=== PATIENT | male | born 1945 | race Caucasian/White ===

== ENCOUNTER 2018-11-18 00:54 | Inpatient (IN) | payer MEDICARE ==
[~2018-11-18] VITALS: Ht 182.9 cm; Wt 68.9 kg
[~2018-11-18 00:54] MED LIST: ACETAMINOPHEN325 M1 PO; ASPIR 8181 MG PO; AUGMENTIN 875875 MG PO; CELEXA 20 MG TA20 M1; EXELON4.5 MG PO; FLOMAX0.4 MG PO; GABAPENTIN 100100 MG PO; GEMFIBROZIL 60600 MG PO; HYDROCHLOROTH12.5 MG; LASIX 20 MG TAB20 MG PO; LISINOPRIL10 MG; METFORMIN HCL500 MG PO; MOM; NAMENDA 10 MG T10 MG PO; NEURONTIN 400400 M1 PO; ONDANSETRON HCL4 M2 PO; SEROQUEL 100 M100 M1 PO; SEROQUEL 25 MG25 MG PO; SEROQUEL 50 MG50 MG PO; XANAX 0.25 MG0.25 MG PO; ZOCOR 20 MG TAB20 M1 PO; ZYPREXA 10 MG T10 MG PO
[2018-11-18 00:55] VITALS: BP 140/52
[2018-11-18] MEDS ORDERED: BUSPIRONE HCL10 MG PO (01:28)
[2018-11-18] MEDS ORDERED: CALMOSEPTINE O3.5 GM TOP (01:29)
[2018-11-18] MEDS ORDERED: NEURONTIN100 MG PO (01:29)
[2018-11-18] MEDS ORDERED: TRIAMCINOLONE A80 G2 TOP (01:30)
[2018-11-18] MEDS ORDERED: NIZORAL120 ML (01:30)
[2018-11-18] MEDS ORDERED: KEPPRA 500 MG500 M1 PO (01:31)
[2018-11-18] MEDS ORDERED: TYLENOL325 MG RECTAL (01:31)
[2018-11-18] MEDS ORDERED: BISACODYL SUPP10 MG RECTAL (01:31)
[2018-11-18 01:48] LABS: HEMATOCRIT 47.9 % (42.0-52.0); HEMOGLOBIN 15.9 gm/dL (14.0-18.0); MCHC 33.2 g/dL (28.0-37.0); MCV 90.3 fL (80.0-100.0); MPV 9.6 fl. (7.2-11.1); NUCLEATED RBCS 0 /100WBC; PLATELET COUNT* 168 thou/uL (150-400); RBC 5.31 mil/uL (4.50-6.00); RDW-CV 14.1 % (10.5-14.5); WBC 9.7 thou/uL (4.0-11.0)
[2018-11-18 01:51] LABS: BE 2.3 mmol/L (-2 to +3); PCO2 36.4 mmHg (35.0-45.0); pH 7.467 (7.340-7.450)
[2018-11-18 01:59] LABS: PO2 151.2 mmHg (75.0-100.0)
[2018-11-18 02:01] LABS: ANION GAP 11 mmol/L (7-16); BUN 44 mg/dL (7-18); CALCIUM 9.4 mg/dL (8.5-10.1); CHLORIDE 105 mmol/L (98-107); CO2 28 mmol/L (21-32); CREATININE 1.4 mg/dL (0.6-1.3); GLUCOSE 164 mg/dL (70-99); POTASSIUM 4.5 mmol/L (3.5-5.1); SODIUM 144 mmol/L (136-145)
[2018-11-18 02:04] LABS: ALBUMIN 3.2 g/dL (3.4-5.0); ALKALINE PHOSPHATASE 120 U/L (46-116); INR 1.1; NT-PRO BRAIN NAT PEPTIDE 2429 pg/mL (<300); PROTIME 10.8 Seconds (9.20-11.50); SGOT 26 U/L (15-37); SGPT 29 U/L (30-65); TOTAL BILIRUBIN 1.2 mg/dL (<0.1-1.0); TROPONIN-I LEVEL <0.06 ng/mL (<0.06)
[2018-11-18 02:11] LABS: URINE BILIRUBIN NEGATIVE (Negative); URINE BLOOD NEGATIVE (Negative); URINE CLARITY CLEAR; URINE COLOR YELLOW; URINE GLUCOSE-RANDOM NEGATIVE (Negative); URINE KETONES NEGATIVE (Negative); URINE LEUKOCYTES-REFLEX NEGATIVE (Negative); URINE NITRITE-REFLEX NEGATIVE (Negative); URINE PROTEIN 1+ (Negative); URINE SPECIFIC GRAVITY >= 1.030 (1.005-1.030); URINE UROBILINOGEN 0.2 E.U./dl (0.2-1.0)
[2018-11-18 03:25] LABS: ABSOLUTE LYMPHOCYTES 0.9 thou/uL (0.8-5.3); ABSOLUTE MONOCYTES 0.2 thou/uL (0.0-1.2); ABSOLUTE NEUTROPHILS 8.6 thou/uL (1.6-8.1); PLATELET ESTIMATE ADEQUATE
[2018-11-18 05:58] LABS: BE -2.6 mmol/L (-2 to +3); PCO2 27.5 mmHg (35.0-45.0); PO2 102.1 mmHg (75.0-100.0); pH 7.472 (7.340-7.450)
[2018-11-18 06:03] VITALS: BP 122/65
--- NOTE | 2018-11-18 11:03 | NUR ---
DR. KERR SPOKE WITH PT'S DTR TO CONFRIM THAT PT IS A DNR
[2018-11-18 13:10] VITALS: BP 112/55
--- NOTE | 2018-11-18 14:00 | NUR ---
73 T/O MALE ADMITTED TO ROOM 229 AT APPROXIMATELY 1300 WITH AN ADMITTING DIAGNOSIS OF SEPSIS, AMS, RESP FAILUURE, AND PNUEMONIA. PT CURRENTLY ON BIPAP SET AT 40 % FIO2. PT IS LETHARGIC AND NON VERBAL. VSS. NEDS GIVEN PER EMAR. TRACING SR ON MONITOR. HOURLY ROUNDING AND FALL PRECAUTIONS IN PLACE. CLWR.
[2018-11-18 15:45] LABS: CALCIUM 8.7 mg/dL (8.5-10.1); CREATININE 1.4 mg/dL (0.6-1.3); POTASSIUM 4.2 mmol/L (3.5-5.1)
[2018-11-18 16:00] VITALS: BP 90/56
[2018-11-18 19:50] VITALS: BP 120/36
[2018-11-19] VITALS: BP 125/78; BP 135/64
[2018-11-19 00:58] LABS: ABSOLUTE EOSINOPHILS 0.1 thou/uL (0.0-0.7); ABSOLUTE LYMPHOCYTES 0.6 thou/uL (0.8-5.3); ABSOLUTE MONOCYTES 0.3 thou/uL (0.0-1.2); ABSOLUTE NEUTROPHILS 6.2 thou/uL (1.6-8.1); BASOPHILS 0.2 %; EOSINOPHILS 0.7 %; HEMATOCRIT 35.5 % (42.0-52.0); HEMOGLOBIN 11.5 gm/dL (14.0-18.0); MCH 30.1 pg (26.0-34.0); MCHC 32.5 g/dL (28.0-37.0); MCV 92.8 fL (80.0-100.0); MONOCYTES 4.2 %; MPV 9.7 fl. (7.2-11.1); NUCLEATED RBCS 0 /100WBC; PLATELET COUNT* 113 thou/uL (150-400); POLYS 86.9 %; RBC 3.82 mil/uL (4.50-6.00); RDW-CV 14.2 % (10.5-14.5); WBC 7.1 thou/uL (4.0-11.0)
[2018-11-19 01:18] LABS: CALCIUM 8.6 mg/dL (8.5-10.1); CREATININE 1.1 mg/dL (0.6-1.3); POTASSIUM 3.4 mmol/L (3.5-5.1)
[2018-11-19 04:00] VITALS: BP 121/55; BP 153/73
--- NOTE | 2018-11-19 04:55 | NUR ---
ASSUMED CARE OF PT AT 1900. PT IS CONFUSED. VSS. NO SIGNS OF PAIN. PT IS A Q2 TURN. PT IS IN SINUS RYTHM ON THE TELEMETRY. PT IS RESTING COMFORTABLY IN BED. RESPIRATIONS ARE EVEN AND NONLABORED. WILL CONTINUE TO MONITOR PT.
[2018-11-19 08:00] VITALS: BP 114/58
--- NOTE | 2018-11-19 12:09 | NUR ---
Nutrition: Pt assessed for admit DX sepsis. Wt: 152#. Currently, NPO - ST consult. Pressure ulcer on coccyx noted, per chart. H/o Alzheimers, DM, HTN. Alb 3.2, K+ 3.4, WBC 7.1. RD will order Wilmer once a day for when diet order advances. Low risk at this time.
[2018-11-19 12:25] VITALS: BP 116/60
--- NOTE | 2018-11-19 13:35 | EKG ---
[place] [address] ELECTROCARDIOGRAM REPORT Name: ARSHJULIETATAVO HEAD Room: [address] ADM IN .R.#: [id number] Admission: 11/18/18 Attend Phys: Meera Wallace MD Discharge: Date of : 43 Report #: [id number] THIS REPORT FOR: //name// [facility] ED Test Date: 2018-11-18 Test Time: 01:03:03 Pat Name: JULIETA CABAN Department: Room: [facility] Gender: M Bung Sewer: : 1945 Requested By: Dee Fung Order Number: [id number] MD: Adams Razo Measurements Intervals [place] Rate: 129 P: 51 ME: 145 QRS: -70 QRSD: 93 T: 51 QT: 289 QTc: 424 Interpretive Statements Sinus tachycardia Probable left atrial enlargement RSR' in V1 or V2, right VCD Inferior infarct, old Artifact in lead(s) I,III,aVR,aVL,aVF,V1,V2 Compared to ECG 02/09/2016 15:55:03 RSR' in V1 or V2 now present Myocardial infarct finding now present Left anterior fascicular block persists Electronically Signed On 11-19-2018 13:35:13 CDT by Adams Razo [email or web address] <ELECTRONICALLY SIGNED> By: Adams Razo MD, [facility] 11/19/18 1335 2 2 Adams Razo MD, [facility] /EPI
--- NOTE | 2018-11-19 14:49 | NUR ---
PT CONFUSED AND NONVERBAL, FROM LTC AT [facility]. SPOKE WITH ELISHA AT [facility], THEY WILL ACCEPT BACK AT DC. CALL TO DTR/ENMANUEL/DIANDRA. SHE CONFIRMED THAT. ALSO THAT PT WAS PREVIOUSLY ON HOSPICE BUT DC/D FROM THEIR SERVICE ABOUT 6MO AGO 'GRADUATED.' SHE COULDN'T REMEMBER NAME OF CO BUT IS AGREEABLE TO CONSIDER IT AGAIN IF APPROPRIATE. PT IS NONVERBAL. NEEDS ASSIST WITH ALL ADLS. IS DNR PER DTR. ENMANUEL ALSO STATED THAT SHE IS MOVING TO [place] ON MONDAY AND WANTING HER SISTER WHO LIVES HERE TO BE DPOA. ALTERNATE ON PT'S DPOA FORM IS [facility], BUT ENMANUEL STATED HE LIVES IN [place]. MADE HER AWARE THAT SHE MAY NOT BE ABLE TO CHANGE THE DPOA SINCE PT IS INCOMPACITATED, AND THAT SHE COULD MANAGE ISSUES BY PHONE AND HER SISTER COULD ASSIST NEEDED. SHE IS TALKING WITH [facility] ABOUT THOSE ISSUES ALSO. WILL FOLLOW
[2018-11-19 16:42] VITALS: BP 117/51
--- NOTE | 2018-11-19 18:00 | NUR ---
ASSUMED PT CARE AT 0700, VSS, CARIAC MONITOR TRACING SINUS RHYTHM, PT WAS ON BIPAP CONT AT 40%, RT CHANGED TO HI EDGARDO NC AT 8LPM, PT TOLERATED WELL, ST EVAL, ORDERS TO REMAIN NPO. LS COARSE WITH STRIDOR, NON PRODUCTIVE COUGH, PT REMAINS ALERT TO SELF ONLY, NON VERBAL. FLUIDS CHANGED TO D5 DIRECTED D/T BS DROPPING TO 75 WHILE MAINTAINING NPO STATUS. CONT ON FLUIDS AND IV ABTS, Q 2 HOUR TURNS AND HOURLY ROUNDING COMPLETED.
[2018-11-19 19:35] VITALS: BP 145/64
[2018-11-20] VITALS: BP 116/60
--- NOTE | 2018-11-20 03:42 | NUR ---
ASSUMED CARE OF PT AT 1900. PT IS VERY CONFUSED AND UNABLE TO FOLLOW SIMPLE COMMANDS. PT IS A Q2 TURN. PT HAS A LOW GRADE FEVER. PT HAS A YAP IN PLACE. PT IS IN SINUS RYTHM ON THE TELEMETRY. PT IS RESTING COMFORTABLY IN BED. RESPIRATIONS ARE EVEN AND NONLABORED. WILL CONTINUE TO MONITOR PT.
[2018-11-20 04:00] VITALS: BP 116/54
[2018-11-20 05:17] LABS: ABSOLUTE EOSINOPHILS 0.3 thou/uL (0.0-0.7); ABSOLUTE LYMPHOCYTES 0.7 thou/uL (0.8-5.3); ABSOLUTE MONOCYTES 0.4 thou/uL (0.0-1.2); ABSOLUTE NEUTROPHILS 6.6 thou/uL (1.6-8.1); BASOPHILS 0.2 %; EOSINOPHILS 3.4 %; HEMOGLOBIN 10.2 gm/dL (14.0-18.0); LYMPHOCYTES 8.4 %; MCH 30.3 pg (26.0-34.0); MCV 91.8 fL (80.0-100.0); MONOCYTES 5.2 %; MPV 10.1 fl. (7.2-11.1); NUCLEATED RBCS 0 /100WBC; PLATELET COUNT* 133 thou/uL (150-400); POLYS 82.8 %; RBC 3.38 mil/uL (4.50-6.00); RDW-CV 14.1 % (10.5-14.5); WBC 7.9 thou/uL (4.0-11.0)
[2018-11-20 05:28] LABS: CALCIUM 8.4 mg/dL (8.5-10.1); POTASSIUM 3.2 mmol/L (3.5-5.1)
[2018-11-20 08:00] VITALS: BP 122/46
[2018-11-20 12:13] VITALS: BP 113/47
--- NOTE | 2018-11-20 14:32 | NUR ---
CONTINUE TO FOLLOW, DISCUSSED WITH DR KERR AND HE WAS ABLE TO TALK WITH PT'S DTR/ENMANUEL OVER THE PHONE RE: POC AND PROGNOSIS. DTR NOT WANTING AGGRESSIVE TX, AWARE THAT PT FAILED SWALLOW STUDY AND IS PROBABLY 'ASPIRATING'. DISCUSSED HOSPICE, SHE IS OPEN TO THAT AND HAD NO PREFERENCE OTHER THAN THOSE USED BY [facility]. CALL TO [facility]. PT WAS ON HOSPICE PARTNERS AND DC'D FROM THEIR SERVICE LAST JAN. DTR WANTED TO USE A DIFFERENT ONE FAMILIAR WITH FACILITY. CALLED AND FAXED REFERRAL TO [facility], SPOKE WITH YEFRI. THEIR NURSE TO COME OUT TO [facility] THIS AFTERNOON AND CONTACT DTR BY PHONE PER HER REQUEST. DTR VOICED THAT PT HAD BEEN ILL FOR OVER 10YRS AND HAD 'NO QUALIFY OF LIFE.' SHE WANTS HIM TO BE COMFORTABLE.
[2018-11-20 15:51] VITALS: BP 137/52
--- NOTE | 2018-11-20 18:30 | NUR ---
ASSUMED PT CARE AT 0700, PT REMAINS ON BEDREST, NON VERBAL, ALERT TO TACTILE STIMULI, ORIENTED TO SELF ONLY AT TIMES. VSS, O2 AT 8LPM VIA HI EDGARDO NC, PT TOLERATING WELL. HOSPICE CONSULT AND EVAL, FAMILY NOTIFIED AND AWAITING DC PLAN FROM DR KERR. PT TO DC BACK TO FACILITY ON HOSPICE. REMAINS NPO PER ST, CONT ON FLUIDS AND IV ABTS DIRECTED. YAP PATENT AND DRAINING DARK YELLOW URINE. HOURLY ROUNDING AND Q 2 HOUR TURNS COMPLETED.
[2018-11-20 19:40] VITALS: BP 137/48
[2018-11-21] VITALS: BP 112/92
--- NOTE | 2018-11-21 03:03 | NUR ---
ASSUMED CARE OF PT AT 1900. PT IS CONFUSED. JUAN. BLADE. PT IS ON 4 LITERS OF O2. PT IS A Q2 TURN. PT HAS A YAP IN PLACE. PT IS IN SINUS RYTHM ON THE TELEMETRY. PT IS RESTING COMFORTABLY IN BED. RESPIRATIONS ARE EVEN AND NONLABORED. WILL CONTINUE TO MONITOR PT.
[2018-11-21 04:00] VITALS: BP 146/75
[2018-11-21 06:02] LABS: CALCIUM 8.4 mg/dL (8.5-10.1); CREATININE 0.8 mg/dL (0.6-1.3); POTASSIUM 3.6 mmol/L (3.5-5.1)
[2018-11-21 06:16] LABS: HEMATOCRIT 32.3 % (42.0-52.0); HEMOGLOBIN 10.7 gm/dL (14.0-18.0); MCH 30.1 pg (26.0-34.0); MPV 10.3 fl. (7.2-11.1); NUCLEATED RBCS 0 /100WBC; PLATELET COUNT* 159 thou/uL (150-400); RBC 3.55 mil/uL (4.50-6.00); RDW-CV 14.6 % (10.5-14.5); WBC 7.6 thou/uL (4.0-11.0)
[2018-11-21 07:06] LABS: ABSOLUTE EOSINOPHILS 0.3 thou/uL (0.0-0.7); ABSOLUTE LYMPHOCYTES 1.1 thou/uL (0.8-5.3); ABSOLUTE MONOCYTES 0.4 thou/uL (0.0-1.2); ABSOLUTE NEUTROPHILS 5.8 thou/uL (1.6-8.1)
[2018-11-21 07:07] LABS: ANISOCYTOSIS 1+; PLATELET ESTIMATE ADEQUATE; POIKILOCYTOSIS 1+
[2018-11-21 08:00] VITALS: BP 147/67
[2018-11-21 11:58] VITALS: BP 147/60
--- NOTE | 2018-11-21 14:49 | NUR ---
CONTINUE TO FOLLOW, SPOKE WITH [facility] AND WITH FARRAH @ [facility]. THEY ARE MEETING WITH PT'S 2 DTRS AT [facility] THIS AFTERNOON TO DISCUSS HOSPICE, CURRENT NPO STATUS AND COMFORT FEEDINGS IF PT DC'S WITH HOSPICE. UPDATED NURSE AND DR KERR
[2018-11-21 15:53] VITALS: BP 151/73
--- NOTE | 2018-11-21 19:46 | NUR ---
ASSUMED PT CARE AT 0800. PT SLEEPING. PT BEDREST. PT O2 SAT 90'S 4L NC, BIPAP AT NIGHT. PT TRACING SR/ST ON TELE PT HR GOES UP TO 150'S. NA 158, PHYSICIAN NOTIFIED. PT ON YAP. PT RECEIVING ANTIBIOTICS. PT IV ACCESS INTACT. PT Q2 TURN. PT NPO, FOR SPEECH THERAPY EVAL. PT GOING TO HOSPICE. VSS, AM ASSESSMENT CHARTED. MEDS GIVEN PER. HOURLY ROUNDING. GIVE REPORT TO NIGHT NURSE. WILL CONTINUE TO MONITOR.
[2018-11-21 21:00] VITALS: BP 148/65
[2018-11-22] VITALS: BP 138/60
[2018-11-22 04:00] VITALS: BP 112/46
--- NOTE | 2018-11-22 06:51 | NUR ---
VITALS STABLE, AFEBRILE. UNABLE TO ASSESS ORIENTATION. PATIENT SLEEPING THROUGH THE NIGHT, ABLE TO OPEN EYES BRIEFLY AROUND 0400. ATTEMPTED ASKING ORIENTATION QUESTIONS, PATIENT DOES NOT RESPOND TO VERBAL STIMULI NOR DOES HE FOLLOW COMMANDS. PATIENT PLACED ON BIPAP AROUND 0200 FOR INCREASED RR, IMPROVED. PATIENT SEEMS MUCH MORE COMFORTABLE NOW. Q2 TURNS FOR SKIN INTEGRITY.
[2018-11-22 08:00] VITALS: BP 142/53
--- NOTE | 2018-11-22 12:13 | NUR ---
ORDERS RECEIVED FOR DC TO LTC WITH HOSPICE. CALLED AND FAXED DC ORDERS TO [facility] AND TO [facility]. ALSO PLACED CALL TO [facility], IN AGREEMENT WITH PLAN. CHART COPIED. RN HAS NUMBER TO CALL REPORT. CALLED AND ARRANGED AMBULANCE FOR 2PM.
[2018-11-22] MEDS ORDERED: BISACODYL SUPP10 MG RECTAL (12:38)
[2018-11-22] MEDS ORDERED: TYLENOL325 MG PO (12:40)
[2018-11-22 12:42] VITALS: BP 142/53
--- NOTE | 2018-11-22 15:13 | NUR ---
ASSUMED PT CARE AT 0800. PT SLEEPING. PT O2 SAT 90'S BIPAP. PT CONFUSED. PT TO DISCHARGE TO HOSPICE. PT ON YAP CATH, NPO. LOWER EXTREMITY EDEMA NOTED. AM ASSESSMENT CHARTED. HOURLY ROUNDING Q2 TURN. CALL LIGHT WITHIN REACH. WILL CONTINUE TO MONITOR.
--- NOTE | 2018-11-22 15:49 | NUR ---
PT 0N 4L O2, SET OF VITALS TAKEN. CALL REPORT TO [facility]. EMS TRANSPORT THE PATIENT AT 1530.
--- NOTE | 2018-11-22 17:11 | EKG ---
[place] [address] ELECTROCARDIOGRAM REPORT Name: JULIETA CABAN Room: [address] DIS IN M.R.#: [id number] Admission: 11/18/18 Attend Phys: Meera Wallace MD Discharge: 11/22/18 Date of : 43 Report #: [id number] THIS REPORT FOR: //name// [facility] Test Date: 2018-11-21 Test Time: 17:09:14 Pat Name: JULIETA CABAN Department: Room: [address] Gender: M Treatment Counselor: : 1945 Requested By: Meera Wallace Order Number: [id number] Reading MD: Hossein Bryan Measurements Intervals [place] Rate: 159 P: 232 MA: 72 QRS: -52 QRSD: 84 T: 21 QT: 324 QTc: 528 Interpretive Statements Supraventricular tachycardia Left anterior fascicular block Repolarization abnormality, prob rate related Compared to ECG 11/18/2018 01:03:03 Left anterior fascicular block now present Early repolarization now present Sinus tachycardia no longer present Myocardial infarct finding no longer present Electronically Signed On 11-22-2018 17:11:21 CDT by Hossein Bryan [email or web address] <ELECTRONICALLY SIGNED> By: Hossein Bryan MD, FACC 11/22/18 1711 170 170 Hossein Bryan MD, FACC /EPI
--- NOTE | 2018-11-22 17:21 | EKG ---
[place] [address] ELECTROCARDIOGRAM REPORT Name: JULIETA CABAN Room: [address] DIS IN M.R.#: [id number] Admission: 11/18/18 Attend Phys: Meera Wallace MD Discharge: 11/22/18 Date of : 43 Report #: [id number] THIS REPORT FOR: //name// [facility] Test Date: 2018-11-22 Test Time: 11:31:02 Pat Name: JULIETA CABAN Department: Room: [address] Gender: M Steam Meter Reader: : 1945 Requested By: Meera Wallace Order Number: [id number] Reading MD: Hossein Bryan Measurements Intervals [place] Rate: 169 P: [place]: QRS: -50 QRSD: 102 T: 216 QT: 296 QTc: 497 Interpretive Statements Baseline artifact Undetermined rhythm that appears regular Baseline wander in lead(s) I,II,aVR,V1 Compared to ECG 11/18/2018 01:03:03 Consider repeat EKG Electronically Signed On 11-22-2018 17:21:00 CDT by Hossein Bryan [email or web address] <ELECTRONICALLY SIGNED> By: Hossein Bryan MD, FACC 11/22/18 1721 1131 1131 Hossein Bryan MD, [facility] /EPI
== END 2018-11-22 15:30 | DRG 871 ==
LOC: M.ERS 00:54 → M.2W 02:37 → M.TBA-ER 02:37 → M.2W 13:02
PROVIDERS: Emergency Medicine; Internal Medicine; ADMIT Family Medicine
PROC: 5A09357 Assistance with Respiratory Ventilation, Less than 24 Consecutive Hours, Continuous Positive Airway Pressure (ICD-10-PCS; principal; 2018-11-18)
PROC: 5A09357 Assistance with Respiratory Ventilation, Less than 24 Consecutive Hours, Continuous Positive Airway Pressure (ICD-10-PCS; 2018-11-22)
DX: A41.9 Sepsis, unspecified organism (principal); J69.0 Pneumonitis due to inhalation of food and vomit; J96.92 Respiratory failure, unspecified with hypercapnia; G30.9 Alzheimer's disease, unspecified; F02.80 Dementia in other diseases classified elsewhere, unspecified severity, without behavioral disturbance, psychotic disturbance, mood disturbance, and anxiety; I10 Essential (primary) hypertension; F41.9 Anxiety disorder, unspecified; E78.00 Pure hypercholesterolemia, unspecified; E11.9 Type 2 diabetes mellitus without complications; E78.5 Hyperlipidemia, unspecified; G47.00 Insomnia, unspecified; Z88.8 Allergy status to other drugs, medicaments and biological substances; Z87.891 Personal history of nicotine dependence